=== PATIENT | male | born 1980 | race Caucasian/White ===

== ENCOUNTER 2020-12-20 23:56 | Emergency (ER) | payer OTHER ==
[~2020-12-20] VITALS: Ht 175.3 cm; Wt 93.0 kg
[2020-12-21] MEDS ORDERED: HYDROMORPHONE 1 MG/1 ML DISP.SYRIN IM ONE (00:30)
[2020-12-21] MEDS ORDERED: ONDANSETRON ODT 4 MG TAB.RAPDIS SL ONE (00:30)
[2020-12-21] MEDS ORDERED: HYDROMORPHONE 1 MG/1 ML DISP.SYRIN ONE (00:37)
[2020-12-21] MEDS ORDERED: ONDANSETRON ODT 4 MG TAB.RAPDIS ONE (00:38)
[2020-12-21] MEDS ORDERED: HYDR-4209 PO (01:28)
[2020-12-21 01:51] VITALS: BP 130/91
== END 2020-12-21 01:45 | disposition home or self-care (01) ==
LOC: ER 12-21 00:01
DX: S92.002D Unspecified fracture of left calcaneus, subsequent encounter for fracture with routine healing (principal); X58.XXXD Exposure to other specified factors, subsequent encounter; F17.210 Nicotine dependence, cigarettes, uncomplicated; Z53.29 Procedure and treatment not carried out because of patient's decision for other reasons; Z91.81 History of falling
CPT/HCPCS: 73700; 96372; 99284; 99406; J1170; A4663; Q0162